=== PATIENT | female | born 1985 | race Caucasian/White ===

== ENCOUNTER 2020-09-23 20:11 | Emergency (ER) | payer OTHER ==
[~2020-09-23] VITALS: Ht 157.5 cm; Wt 52.4 kg
[2020-09-23 20:15] VITALS: BP 121/71
--- NOTE | 2020-09-23 20:31 | PHYS DOC ---
General Adult EDM: Chief Complaint: WRIST PAIN HPI: HPI: ".. I was snow boarding.. and went down hard.. Patient is a 34 year old female who presents with above hx and Lt wrist injury snow boarding at [place]. Patient has contusions and swelling in left wrist. Patient appears localized pain and ulnar stylus area. Distal sensation is equal to right hand. Movement of left wrist induces pain. No upper arm tenderness. Patient is left-hand dominant. Patient has contusions to her gluteal area but she states that area is fine. Patient denies other significant injury. Requesting evaluation of her left wrist injury. Patient normally healthy. No recent travel. Is accompanied with a significant other. Review of Systems: Review of Systems: Constitutional: Denies fever or chills Eyes: Denies change in visual acuity HENT: Denies nasal congestion or sore throat Respiratory: Denies cough or shortness of breath Cardiovascular: Denies chest pain or edema GI: Denies abdominal pain, nausea, vomiting, bloody stools or diarrhea : Denies dysuria Musculoskeletal: Complains of severe left wrist pain injury Integument: Denies rash Neurologic: Denies headache, focal weakness or sensory changes Endocrine: Denies polyuria or polydipsia Lymphatic: Denies swollen glands Psychiatric: Denies depression or anxiety Family History: Family History: Noncontributory Current Medications: Current Meds: See nursing for home meds Allergies: Allergies: Allergies Coded Allergies Type Severity Reaction Last Updated Verified No Known Drug Allergies 09/23/20 No Physical Exam: PE: Constitutional: Well developed, well nourished, no acute distress, non-toxic appearance. [] HENT: Normocephalic, atraumatic, bilateral external ears normal, oropharynx moist, no oral exudates, nose normal. [] Eyes: PERRLA, EOMI, conjunctiva normal, no discharge. [] Neck: Normal range of motion, no tenderness, supple, no stridor. [] Cardiovascular:Heart rate regular rhythm, no murmur [] Lungs & Thorax: Bilateral breath sounds clear to auscultation [] Abdomen: Bowel sounds normal, soft, no tenderness, no masses, no pulsatile masses. [] Skin: Warm, dry, no erythema, no rash. [] Back: No tenderness, no CVA tenderness. [] Extremities: No tenderness, no cyanosis, no clubbing, ROM intact, no edema. [] Except findings in left wrist as per HPI Neurologic: Alert and oriented X 3, normal motor function, normal sensory function, no focal deficits noted. [] Psychologic: Affect anxious,, judgement normal, mood normal. [] EKG: EKG: [] Radiology/Procedures: Radiology/Procedures: [][place] [address] IMAGING REPORT Signed PATIENT: ROYA CABRERA ACCOUNT: [id number] : 1985 LOCATION: ER AGE: 34 SEX: F EXAM STATUS: DEP ER ORD. PHYSICIAN: ABHIJIT HOLDER MD REASON: FALL WITH WRIST PAIN/SWELLING PROCEDURE: WRIST 3V LEFT PROCEDURE: XR LT WRIST 3VIEWS STUDY DATE: 09/23/2020 CLINICAL INDICATION / HISTORY: Reason: FALL WITH WRIST PAIN/SWELLING / Spl. Instructions: / History: . TECHNIQUE: Left wrist 3 views. AP, lateral, oblique views. COMPARISON: None FINDINGS: The radiocarpal and intracarpal relationships are maintained. There is no fracture or dislocation. The bone density is normal. No soft tissue abnormality is seen. IMPRESSION: No acute osseous abnormality. Electronically signed by: Tamara Call MD (09/23/2020 10:07 PM) [facility] [place] DICTATED AND SIGNED BY: TAMARA CALL MD DATE: 09/23/20 1812 CC: ABHIJIT HOLDER MD; NON,STAFF ~MTH0 0 Heart Score: Risk Factors: Risk Factors: DM, Current or recent (<one month) smoker, HTN, HLP, family history of CAD, obesity. Risk Scores: Score 0 - 3: 2.5% MACE over next 6 weeks - Discharge Home Score 4 - 6: 20.3% MACE over next 6 weeks - Admit for Clinical Observation Score 7 - 10: 72.7% MACE over next 6 weeks - Early Invasive Strategies Course & Med Decision Making: Course & Med Decision Making Pertinent Labs and Imaging studies reviewed. (See chart for details) Patient elevate wrist. Use ice packs as needed. Wear splint. Follow-up primary care. Take Tylenol and ibuprofen for pain. If continued pain after 2 weeks escobar-ray for possible fracture. Distal neurovascular intact after application of splint. Impression: 1. Fall 2. FOOSH type Injury to Lt. wrist-sprain [] Dragon Disclaimer: Dragon Disclaimer: This electronic medical record was generated, in whole or in part, using a voice recognition dictation system. Dragon Disclaimer This chart was dictated in whole or in part using Voice Recognition software in a busy, high-work load, and often noisy Emergency Department environment. It may contain unintended and wholly unrecognized errors or omissions. ABHIJIT HOLDER MD Sep 23, 2020 20:31
[2020-09-23] MEDS ORDERED: oxyCODONE/APAP 5/325 1 TAB TABLET PO ONE (20:45)
--- NOTE | 2020-09-23 22:10 | RAD ---
PROCEDURE: XR LT WRIST 3VIEWS STUDY DATE: 09/23/2020 CLINICAL INDICATION / HISTORY: Reason: FALL WITH WRIST PAIN/SWELLING / Spl. Instructions: / History: . TECHNIQUE: Left wrist 3 views. AP, lateral, oblique views. COMPARISON: None FINDINGS: The radiocarpal and intracarpal relationships are maintained. There is no fracture or dislo cation. The bone density is normal. No soft tissue abnormality is seen. IMPRESSION: No acute osseous abnormality. Electronically signed by: Janay Pike MD (09/23/2020 10:07 PM) [facility] [place]
== END 2020-09-23 22:05 | disposition home or self-care (01) ==
LOC: ER 20:11
DX: S63.502A Unspecified sprain of left wrist, initial encounter (principal); V00.311A Fall from snowboard, initial encounter; Y93.23 Activity, snow (alpine) (downhill) skiing, snowboarding, sledding, tobogganing and snow tubing; Y92.89 Other specified places as the place of occurrence of the external cause; Y99.8 Other external cause status
CPT/HCPCS: 29125; 73110; 99283